=== PATIENT | female | born 1965 | race Caucasian/White ===

== ENCOUNTER 2024-08-13 07:53 | Emergency (ER) | payer OTHER, SELFPAY ==
[2024-08-13] VITALS (12 sets, daily range): BP systolic 140–159; BP diastolic 64–81; PULSE 71–88; RESP 15–23; TEMP 36.8–37.1; O2SAT 94–99; BMI 47.4
--- NOTE | 2024-08-13 07:57 | EKG_ITS ---
[address] [address] Test Date: 2024-08-13 Pat Name: Kate Reece Department: Room: Gender: Female Deployment Technician: KALLI : 1965 Requested By: Order Number: [id number] Reading MD: Santos Hanley MD Measurements Intervals [place] Rate: 71 P: 41 MI: 192 QRS: 9 QRSD: 96 T: 30 QT: 408 QTc: 443 Interpretive Statements Normal sinus rhythm Electronically Signed On 08-13-2024 12:23:31 PST by Santos Hanley MD
--- NOTE | 2024-08-13 08:24 | DI.RAD.S_ITS ---
PROCEDURE: XR CHEST 1V INDICATIONS: chest pain TECHNIQUE: One view of the chest was acquired. COMPARISON: None. FINDINGS: Surgical changes and devices: None. Lungs and pleura: Lungs are clear. No pleural effusions or pneumothorax. Mediastinum: Mediastinal contours appear normal. Heart size is normal. Bones and chest wall: No suspicious bony lesions. Overlying soft tissues appear unremarkable. IMPRESSION: No acute cardiopulmonary abnormality is seen. Dictated by: Reggie Gordon M.D. on 08/13/2024 at 9:28 Approved by: Reggie Gordon M.D. on 08/13/2024 at 9:30
[2024-08-13 08:35] LABS: INR 0.9 (0.9-1.3); Prothrombin Time 10.5 SECONDS (9.4-12.5)
[2024-08-13 08:36] LABS: Add Manual Diff / Slide Review NO; Basophils Absolute Auto 100 /uL (0-100); Basophils Percent Auto 0.4 % (0-2); Eosinophils Absolute Auto 400 /uL (0-450); Eosinophils Percent Auto 2.4 % (2-4); Hematocrit 43.7 % (36-46); Hemoglobin 14.4 g/dL (12.0-16.0); Lymphocytes Absolute Auto 1700 /uL (1100-4500); Lymphocytes Percent Auto 10.3 % (25-40); Mean Corpuscular Volume 90.9 fL (80-100); Monocytes Absolute Auto 900 /uL (0-900); Monocytes Percent Auto 5.6 % (3-14); Neutrophils Absolute Auto 13400 /uL (1500-7000); Neutrophils Percent Auto 81.3 % (50-75); Platelet Count 327 X10^3/uL (150-400); Red Blood Cell Count 4.81 X10^6/uL (4.0-5.2); Red Cell Distribution Width 14.6 % (11.6-14.8); White Blood Cell Count 16.5 X10^3/uL (4.5-11.0)
[2024-08-13 08:37] LABS: PTT Partial Thromboplastin Tim 37 SECONDS (25.1-36.5)
[2024-08-13 08:40] LABS: Alanine Aminotransferase 21 IU/L (<35); Albumin 4.6 g/dL (3.5-5.0); Albumin Globulin Ratio 1.5 (1.0-2.8); Alkaline Phosphatase 103 U/L (38-126); Aspartate Aminotransferase 22 IU/L (14-36); BUN Creatinine Ratio 22.2 (6-22); Bilirubin Total 0.9 mg/dL (0.2-1.3); Blood Urea Nitrogen 14 mg/dL (7-17); Calcium 9.2 mg/dL (8.4-10.2); Carbon Dioxide 24 mmol/L (22-32); Chloride 106 mmol/L (98-107); Creatine Kinase 33 U/L (30-135); Estimated Glomerular Filt Rate > 60 mL/min (>60); Globulin 3.1 g/dL (1.7-4.1); Glucose 117 mg/dL (80-110); HEMOLYSIS < 15 (0-50); Lipase 41 U/L (23-300); Magnesium 2.1 mg/dL (1.6-2.3); Potassium 4.1 mmol/L (3.4-5.1); Sodium 140 mmol/L (137-145); Total Protein 7.7 g/dL (6.3-8.2)
[2024-08-13] MEDS: ASPIRIN 81 MG CHEW TAB 324 MG PO (08:47)
[2024-08-13 08:51] LABS: NT-proBNP (BNP-Adult 18+) 118 pg/mL (<125); Troponin I < 0.012 ng/mL (0.01-0.034)
--- NOTE | 2024-08-13 09:02 | PC.NURSE ---
Pt reports left shoulder pain a few days ago stating she felt like she slept wrong; pt then stated on she started to feel some anxiety and was having chest, back, and neck tightness. She saw her PCP who did an EKG and ordered a echo. Pt states last night she started to have right shoulder blade pain that wrapped around her right breast. Pt reports tenderness to palpation and states certain positions makes her pain feel better. No skin lesions or skin breaks noted.
--- NOTE | 2024-08-13 09:08 | ED.CHESTPAIN ---
HPI - Chest Pain General Chief Complaint: Chest Pain Stated Complaint: Sharp pain in right shoulder , pain is moving Time Seen by Provider: 08/13/24 08:45 Source: patient Mode of arrival: Ambulatory History of Present Illness HPI narrative: Patient is a 59-year-old female who has history of gastric surgery which has failed according to her presenting today with ongoing right shoulder blade pain. She reports that they are in the process of moving she does not really remember lifting anything heavier injuring her right arm. However over last 1 week he has had increasing pain it is definitely worse whenever she moves her arm. She does not necessarily have weakness in her arm sometimes the pain goes all the way across her chest. No significant shortness of breath no nausea or vomiting. She does have a history of cholecystectomy she has no right upper quadrant pain. However last night she did have some mild abdominal pain where her surgery was. He has no known history of coronary artery disease. She reports that she went to her provider this week when she was having some right shoulder blade pain and EKGs was done and she was told it was normal. However she started again having increasing pain last night. It is definitely reproducible with movement and palpation. Related Data Home Medications Medication Instructions Recorded Confirmed albuterol sulfate 90 mcg/actuation inhalation 08/13/24 aerosol inhaler alprazolam 0.5 mg tablet mg 08/13/24 diltiazem HCl 120 mg mg PO DAILY 08/13/24 capsule,extended release 24 hr, controlled (DILT-XR) fluticasone 500 mcg-salmeterol 50 inhalation 08/13/24 mcg/dose blistr powdr for inhalation losartan 08/13/24 montelukast 10 mg tablet mg DAILY 08/13/24 Previous Rx's Medication Instructions Recorded methocarbamol 500 mg tablet 500 mg PO TID #14 tabs 08/13/24 Allergies Allergy/AdvReac Type Severity Reaction Status Date / Time amoxicillin Allergy Verified 08/13/24 08:38 Penicillins Allergy Verified 08/13/24 08:38 aripiprazole [From Abilify] AdvReac Verified 08/13/24 08:38 codeine AdvReac Verified 08/13/24 08:38 Patient History Social History Smoking Status: Former smoker Smoking Status: Former smoker Exam Initial Vital Signs Initial Vital Signs: Vital Signs Pulse Rate 82 0222/25 08:02 Pulse Oximetry 97 08/13/24 08:02 GENERAL: Alert pleasant 59-year-old female and in no acute distress. HEENT: Head atraumatic,EOMI, pupils reactive, face symmetric, moist mucous membranes CARDIOVASCULAR: Regular rate and rhythm without murmurs, rubs or gallops. RESPIRATORY: Breath sounds equal bilaterally, no wheezes rales or rhonchi. ABDOMEN: Soft, nontender. Normoactive bowel sounds all 4 quadrants. No guarding or rebound. EXTREMITIES: Normal range of motion, no clubbing or edema. Neurovascularly intact Right scapula region is tender to touch reproducible to palpation. No exam no vesicles. Full range of motion NEUROLOGICAL: Alert and oriented x4.Normal gait and speech. Cranial nerves II through XII grossly intact. Molding Plasterer strength equal bilaterally SKIN: Warm, dry, no laceration, no petechiae, no rashes or lesions. Course Orders Ordered: ED Orders 08/13/24 07:57 EKG-12 Lead Stat 08/13/24 08:13 Complete Blood Count AUTO DIFF Stat Comprehensive Metabolic Panel Stat Lipase Stat Magnesium Stat NT-proBNP (BNP-Adult 18+) Stat PTT Partial Thromboplastin [place] Stat Prothrombin Time INR Stat Troponin & CK Cardiac Panel Stat 08/13/24 08:24 XR chest 1V Stat EKG-12 Lead Stat 08/13/24 09:26 CT abdomen pelvis w con Stat Discontinued Medications Aspirin (Aspirin 81 Mg Chew Tab) 324 mg PO NOW ONE Stop: 08/13/24 08:25 Last Admin: 08/13/24 08:47 Dose: 324 mg Documented By: DONNA Vital Signs Vital signs: Vital Signs - 8 hr 08/13/24 08:19 08/13/24 08:30 08/13/24 08:30 Temperature 98.7 F Pulse Rate 87 81 Respiratory Rate 16 Blood Pressure 140/77 148/66 H Pulse Oximetry 97 96 Oxygen Delivery Method Room Air 08/13/24 09:00 08/13/24 09:00 08/13/24 09:46 Temperature Pulse Rate 75 88 Respiratory Rate 15 23 Blood Pressure 147/68 H Pulse Oximetry 98 96 Oxygen Delivery Method 08/13/24 10:00 08/13/24 10:01 08/13/24 10:01 Temperature Pulse Rate 71 75 Respiratory Rate 21 Blood Pressure 154/68 H Pulse Oximetry 97 97 Oxygen Delivery Method 08/13/24 10:30 08/13/24 10:30 08/13/24 11:00 Temperature Pulse Rate 77 74 Respiratory Rate 17 21 Blood Pressure 159/71 H Pulse Oximetry 96 94 Oxygen Delivery Method 08/13/24 11:01 08/13/24 11:01 08/13/24 11:39 Temperature 98.3 F Pulse Rate 75 74 Respiratory Rate 18 16 Blood Pressure 143/64 H 156/81 H Pulse Oximetry 97 99 Oxygen Delivery Method Room Air MDM - Chest Pain Lab Data 08/13/24 08:13 08/13/24 08:13 Labs: Lab Results 08/13/24 Range/Units 08:13 WBC 16.5 H (4.5-11.0) X10^3/uL RBC 4.81 (4.0-5.2) X10^6/uL Hgb 14.4 (12.0-16.0) g/dL Hct 43.7 (36-46) % MCV 90.9 (80-100) fL MCH 30.0 (26-34) PG MCHC 33.0 (30-36) % RDW 14.6 (11.6-14.8) % Plt Count 327 (150-400) X10^3/uL Neut % (Auto) 81.3 H (50-75) % Lymph % (Auto) 10.3 L (25-40) % [place] % (Auto) 5.6 (3-14) % Eos % (Auto) 2.4 (2-4) % Baso % (Auto) 0.4 (0-2) % Neut # (Auto) 97166 H (2645-6381) /uL Lymph # (Auto) 1700 (7214-3370) /uL [place] # (Auto) 900 (0-900) /uL Eos # (Auto) 400 (0-450) /uL Baso # (Auto) 100 (0-100) /uL PT 10.5 (9.4-12.5) SECONDS INR 0.9 (0.9-1.3) APTT 37 H (25.1-36.5) SECONDS Sodium 140 (137-145) mmol/L Potassium 4.1 (3.4-5.1) mmol/L Chloride 106 (98-107) mmol/L Carbon Dioxide 24 (22-32) mmol/L BUN 14 (7-17) mg/dL Creatinine 0.63 (0.52-1.04) mg/dL Estimated GFR > 60 (>60) mL/min BUN/Creatinine Ratio 22.2 H (6-22) Glucose 117 H (80-110) mg/dL Calcium 9.2 (8.4-10.2) mg/dL Magnesium 2.1 (1.6-2.3) mg/dL Total Bilirubin 0.9 (0.2-1.3) mg/dL AST 22 (14-36) IU/L ALT 21 (<35) IU/L Alkaline Phosphatase 103 (38-126) U/L Total Creatine Kinase 33 (30-135) U/L Troponin I < 0.012 (0.01-0.034) ng/mL NT-Pro-B Natriuret Pep 118 (<125) pg/mL Total Protein 7.7 (6.3-8.2) g/dL Albumin 4.6 (3.5-5.0) g/dL Globulin 3.1 (1.7-4.1) g/dL Albumin/Globulin Ratio 1.5 (1.0-2.8) Lipase 41 (23-300) U/L Imaging Data CT scan - abdomen/pelvis: Radiologist's Impression: PROCEDURE: CT ABDOMEN PELVIS W CON INDICATIONS: ab pain right shoulder pain TECHNIQUE: After the administration of intravenous contrast, axial sections acquired from the lung bases to the pubic symphysis. Coronal and sagittal reformats were performed. For radiation dose reduction, the following was used: automated exposure control, adjustment of mA and/or kV according to patient size. COMPARISON: [facility], CR, XR CHEST 1V, 08/13/2024, 8:30. FINDINGS: Image quality: This study is limited by body habitus. Lower Chest: There is a subpleural nodule seen within the right lower lobe, measuring up to 14 mm, as on series 5, image 5. A small hiatal hernia is incidentally noted. ABDOMEN: Liver: No solid mass. Gallbladder: Removed. Biliary ducts: No biliary dilation. Pancreas: No ductal dilation. Spleen: Size is within normal limits. Incidental note is made of an accessory splenule along the hilum of the primary spleen. Adrenal Glands: Generalized adrenal gland thickening can be seen, yet without focal adrenal nodules. Kidneys and Ureters: No hydronephrosis. No solid mass. No complex renal cystic lesion which requires follow up. Stomach and Bowel: Lap band surgery can be seen. No dilated loops of small bowel are seen. Mild distal colonic diverticulosis is seen, without findings of active diverticulitis. A normal appendix is noted. Peritoneum: No abnormal intraperitoneal fluid. No free air. Ventral Wall: A mild periumbilical hernia is seen, containing fat. Abdominal Nodes: No retroperitoneal or mesenteric adenopathy by size criteria. Vessels: Aorta and inferior vena cava are normal in size. Atherosclerotic calcification is noted. PELVIS: Pelvic Organs: No adnexal masses are seen on either side. Bladder: No bladder wall thickening, accounting for underdistention. Pelvic Nodes: No enlarged lymph nodes. Miscellaneous: No inguinal hernias are seen. Bones: No aggressive osseous abnormality. This patient has transitional lumbar anatomy. For the purposes of this examination, the level with the last well-developed pair of ribs is considered to be T12. By this numbering scheme, the S1 level is transitional and is partially lumbarized. There is a remote L1 anterior wedge deformity, with 40% loss of height anteriorly. Focal L5-S1 degenerative change is seen. IMPRESSION: 14 mm nodule seen within the subpleural right lower lobe. Differential diagnosis includes neoplasm. Short-term follow-up contrast enhanced chest CT would be recommended. No imaging explanation is found for this patient's presenting symptoms. Additional findings: Small hiatal hernia Lap band Cholecystectomy Generalized adrenal gland thickening Accessory splenule Mild fat containing periumbilical hernia Diverticulosis, without active diverticulitis Remote L1 anterior wedge deformity Focal L5-S1 degenerative change Transitional S1 level, with partial lumbarization Note: Findings and recommendations discussed by telephone with Dr. Jimenez at 10:46 a.m. [place] time on August 13, 2024. Dictated by: Diogenes Ocasio M.D. on 08/13/2024 at 9:40 Chest x-ray: Radiologist's Impression: PROCEDURE: XR CHEST 1V INDICATIONS: chest pain TECHNIQUE: One view of the chest was acquired. COMPARISON: None. FINDINGS: Surgical changes and devices: None. Lungs and pleura: Lungs are clear. No pleural effusions or pneumothorax. Mediastinum: Mediastinal contours appear normal. Heart size is normal. Bones and chest wall: No suspicious bony lesions. Overlying soft tissues appear unremarkable. IMPRESSION: No acute cardiopulmonary abnormality is seen. Dictated by: Reggie Gordon M.D. on 08/13/2024 at 9:28 Approved by: Reggie Gordon M.D. on 08/13/2024 at 9:30 ECG Data Attestation: I personally reviewed and interpreted this ECG as follows: Prior ECG tracings: not available for review Interpretation: Normal sinus rhythm rate 71 NJ interval 192 QRS [address] changes no T-wave inversion MDM Narrative Medical decision making narrative: [facility] CC: Right shoulder blade pain Complicating co-morbidities: Gastric surgery Medical records reviewed: No previous records Differential considered: Musculoskeletal nerve shingles coronary syndrome dissection, tia cva Exam documented above, pertinent findings include: Pain is definitely reproducible with palpation and movement no rash full strength equal bilaterally Lab Test results independently reviewed as above. Pertinent findings: WBC 16.5, mild left shift anemia CMP no electrolyte abnormalities troponin negative, BNP negative Bilirubin liver enzymes within normal limits Independently reviewed EKG as above no acute ischemia Imaging studies independently reviewed: Chest x-ray does not show any acute cardiopulmonary process CTA abdomen pelvis does show a 14 mm pulmonary nodule on the right Treatments: Aspirin Re-evaluations: Patient is feeling better now she was in the ED abdomen is overall soft Discussion: Patient is 59-year-old female presenting today with right shoulder blade pain has been off and on for about 1 week. It is reproducible with movement and palpation. This seems to be musculoskeletal in nature. Does not seem cardiac in nature. She does have a history of gastric bypass surgery abdominal CT does not show any abnormality in the abdomen. She has an incidental finding of a pulmonary nodule unrelated to her pain today. She does have leukocytosis of 16 unclear cause. She was afebrile. She was not having urinary tract symptoms. Patient is not having any sort of weakness with her right arm this is unlikely to be a TIA or CVA. Discharge Plan Departure Patient Disposition: Home Clinical Impression: Acute pain of right shoulder, Incidental pulmonary nodule Instructions: DI for Pulmonary Nodule, DI for Muscle Spasm Activity Restrictions/Additional Instructions: *You have been diagnosed with muscle spasms *What to do: At this time I do think your right shoulder is hurting from pinched nerve and muscle spasm. Increase activity as tolerated movement encouraged no strenuous heavy lifting. If you have resistance bands they may help as well You also are found to have a pulmonary nodule on the right side. This is unrelated to your pain today. You will need follow-up CT and imaging with your primary care provider *Continue to take medications as directed Methocarbamol 500-1000 mg every 8 hours only if needed for muscle spasms--> to [facility] Continue ibuprofen and Tylenol as needed for pain *Follow up with your primary care provider in 2-3 days or call [phone] *Return to ER if you should have increasing chest pain shortness of breath pain weakness numbness tingling or any new, worsening or concerning symptoms Prescriptions: New methocarbamol 500 mg tablet 500 mg PO TID Qty: 14 0RF No Action albuterol sulfate 90 mcg/actuation HFA aerosol inhaler INHALATION Patient Comments: [NO ORIGINAL SIG] montelukast 10 mg tablet DAILY alprazolam 0.5 mg tablet Patient Comments: [NO ORIGINAL SIG] diltiazem HCl [DILT-XR] 120 mg capsule,ext.rel 24h degradable PO DAILY fluticasone propion-salmeterol 500-50 mcg/dose blister with device INHALATION Patient Comments: [NO ORIGINAL SIG] losartan Rx Instructions: 75mg orally; 50 mg tablet Stand Alone Forms: Patient Portal/API/Survey
--- NOTE | 2024-08-13 09:26 | DI.CT.S_ITS ---
PROCEDURE: CT ABDOMEN PELVIS W CON INDICATIONS: ab pain right shoulder pain TECHNIQUE: After the administration of intravenous contrast, axial sections acquired from the lung bases to the pubic symphysis. Coronal and sagittal reformats were performed. For radiation dose reduction, the following was used: automated exposure control, adjustment of mA and/or kV according to patient size. COMPARISON: [facility], CR, XR CHEST 1V, 08/13/2024, 8:30. FINDINGS: Image quality: This study is limited by body habitus. Lower Chest: There is a subpleural nodule seen within the right lower lobe, measuring up to 14 mm, as on series 5, image 5. A small hiatal hernia is incidentally noted. ABDOMEN: Liver: No solid mass. Gallbladder: Removed. Biliary ducts: No biliary dilation. Pancreas: No ductal dilation. Spleen: Size is within normal limits. Incidental note is made of an accessory splenule along the hilum of the primary spleen. Adrenal Glands: Generalized adrenal gland thickening can be seen, yet without focal adrenal nodules. Kidneys and Ureters: No hydronephrosis. No solid mass. No complex renal cystic lesion which requires follow up. Stomach and Bowel: Lap band surgery can be seen. No dilated loops of small bowel are seen. Mild distal colonic diverticulosis is seen, without findings of active diverticulitis. A normal appendix is noted. Peritoneum: No abnormal intraperitoneal fluid. No free air. Ventral Wall: A mild periumbilical hernia is seen, containing fat. Abdominal Nodes: No retroperitoneal or mesenteric adenopathy by size criteria. Vessels: Aorta and inferior vena cava are normal in size. Atherosclerotic calcification is noted. PELVIS: Pelvic Organs: No adnexal masses are seen on either side. Bladder: No bladder wall thickening, accounting for underdistention. Pelvic Nodes: No enlarged lymph nodes. Miscellaneous: No inguinal hernias are seen. Bones: No aggressive osseous abnormality. This patient has transitional lumbar anatomy. For the purposes of this examination, the level with the last well-developed pair of ribs is considered to be T12. By this numbering scheme, the S1 level is transitional and is partially lumbarized. There is a remote L1 anterior wedge deformity, with 40% loss of height anteriorly. Focal L5-S1 degenerative change is seen. IMPRESSION: 14 mm nodule seen within the subpleural right lower lobe. Differential diagnosis includes neoplasm. Short-term follow-up contrast enhanced chest CT would be recommended. No imaging explanation is found for this patient's presenting symptoms. Additional findings: Small hiatal hernia Lap band Cholecystectomy Generalized adrenal gland thickening Accessory splenule Mild fat containing periumbilical hernia Diverticulosis, without active diverticulitis Remote L1 anterior wedge deformity Focal L5-S1 degenerative change Transitional S1 level, with partial lumbarization Note: Findings and recommendations discussed by telephone with Dr. Jimenez at 10:46 a.m. [place] time on August 13, 2024. Dictated by: Diogenes Ocasio M.D. on 08/13/2024 at 9:40 Approved by: Diogenes Ocasio M.D. on 08/13/2024 at 9:48
== END 2024-08-13 11:40 | disposition home or self-care (01) ==
PROVIDERS: Emergency Provider Emergency Medicine
DX: M25.511 Pain in right shoulder (principal); R10.9 Unspecified abdominal pain; R07.9 Chest pain, unspecified; R91.1 Solitary pulmonary nodule
CPT/HCPCS: 71045; 74177; 80053; 82550; 83690; 83735; 83880; 84484; 85025; 85610; 85730; 93005; 93010; 99283; 99284; Q9967

== ENCOUNTER 2024-08-20 17:03 | Emergency (ER) | payer OTHER, SELFPAY ==
[2024-08-20] VITALS (13 sets, daily range): BP systolic 124–171; BP diastolic 55–81; PULSE 85–95; RESP 18; TEMP 37.6–38.1; O2SAT 93–97; BMI 47.0
[2024-08-20] MEDS: IBUPROFEN 400 MG TABLET 800 MG PO (17:26)
--- NOTE | 2024-08-20 17:37 | EKG_ITS ---
[address] [address] Test Date: 2024-08-20 Pat Name: Kate Reece Department: [facility] Room: Gender: Female C Consultant: WESLY : 1965 Requested By: Order Number: [id number] Reading MD: Joselo Ashby Measurements Intervals [place] Rate: 94 P: 14 SC: 174 QRS: 14 QRSD: 78 T: 32 QT: 332 QTc: 415 Interpretive Statements Normal sinus rhythm Electronically Signed On 08-21-2024 18:57:45 PST by Joselo Ashby
[2024-08-20 19:27] LABS: Add Manual Diff / Slide Review NO; Basophils Absolute Auto 0 /uL (0-100); Basophils Percent Auto 0.2 % (0-2); Eosinophils Absolute Auto 300 /uL (0-450); Eosinophils Percent Auto 1.4 % (2-4); Hematocrit 38.4 % (36-46); Hemoglobin 12.6 g/dL (12.0-16.0); Lymphocytes Absolute Auto 1200 /uL (1100-4500); Lymphocytes Percent Auto 5.8 % (25-40); Mean Corpuscular Hemoglobin 29.7 PG (26-34); Mean Corpuscular Volume 90.2 fL (80-100); Monocytes Absolute Auto 1300 /uL (0-900); Monocytes Percent Auto 6.3 % (3-14); Neutrophils Absolute Auto 18000 /uL (1500-7000); Neutrophils Percent Auto 86.3 % (50-75); Platelet Count 402 X10^3/uL (150-400); Red Blood Cell Count 4.25 X10^6/uL (4.0-5.2); Red Cell Distribution Width 14.3 % (11.6-14.8); White Blood Cell Count 20.9 X10^3/uL (4.5-11.0)
[2024-08-20 19:34] LABS: Alanine Aminotransferase 23 IU/L (<35); Albumin 3.8 g/dL (3.5-5.0); Albumin Globulin Ratio 1.2 (1.0-2.8); Alkaline Phosphatase 109 U/L (38-126); Aspartate Aminotransferase 21 IU/L (14-36); BUN Creatinine Ratio 19.7 (6-22); Bilirubin Total 0.8 mg/dL (0.2-1.3); Blood Urea Nitrogen 12 mg/dL (7-17); Calcium 8.8 mg/dL (8.4-10.2); Carbon Dioxide 23 mmol/L (22-32); Chloride 103 mmol/L (98-107); Estimated Glomerular Filt Rate > 60 mL/min (>60); Globulin 3.2 g/dL (1.7-4.1); Glucose 134 mg/dL (80-110); HEMOLYSIS < 15 (0-50); Lipase 36 U/L (23-300); Potassium 4.1 mmol/L (3.4-5.1); Sodium 136 mmol/L (137-145)
--- NOTE | 2024-08-20 19:34 | ED_ITS ---
HPI - General Adult General Chief complaint: Abdominal Pain Stated complaint: fever t-3, rt shoulder px t-7, rt side px Time Seen by Provider: 08/20/24 19:33 Source: patient Mode of arrival: Wheelchair History of Present Illness HPI narrative: 59-year-old female with a history of gastric surgery which has failed according to patient comes into the ED from home for evaluation of multiple complaints. States that she has been having an intermittent fever for the past 3 days also complaining of right-sided abdominal pain. Also complaining of urinary frequency states was seen here week ago for right-sided shoulder pain and was discharged home with muscle relaxers states that this had helped with those symptoms but because of the fevers felt like the pain is back. She states that her pain primarily to her right lower abdomen, states this is different from what brought her in previously where she was complaining of right shoulder pain to right upper abdominal pain. Denies any nausea vomiting headache chest pain shortness of breath or any other GI/ symptoms at this time. Related Data Home Medications Medication Instructions Recorded Confirmed albuterol sulfate 90 mcg/actuation inhalation 08/13/24 aerosol inhaler alprazolam 0.5 mg tablet mg 08/13/24 diltiazem HCl 120 mg mg PO DAILY 08/13/24 capsule,extended release 24 hr, controlled (DILT-XR) fluticasone 500 mcg-salmeterol 50 inhalation 08/13/24 mcg/dose blistr powdr for inhalation losartan 08/13/24 montelukast 10 mg tablet mg DAILY 08/13/24 Previous Rx's Medication Instructions Recorded methocarbamol 500 mg tablet 500 mg PO TID #14 tabs 08/13/24 doxycycline hyclate 100 mg capsule 100 mg PO BID 5 days #10 caps 08/20/24 Allergies Allergy/AdvReac Type Severity Reaction Status Date / Time amoxicillin Allergy Verified 08/13/24 08:38 Penicillins Allergy Verified 08/13/24 08:38 aripiprazole [From Abilify] AdvReac Verified 08/13/24 08:38 codeine AdvReac Verified 08/13/24 08:38 Review of Systems Review of Systems Narrative: General: Denies fever, chills, weight loss HEENT: Denies headache, eye drainage, eye irritation, head trauma, sore throat, voice change Cardiovascular: Denies any chest pain, palpitations, shortness of breath, tachycardia Respiratory: Denies any shortness of breath, cough, wheeze, stridor GI/: Positive abdominal pain, denies nausea, vomiting, diarrhea, bright red blood per rectum, melanotic stools, urinary frequency, urinary retention, dysuria, hematuria MSK: Denies any joint pain, muscle pains, swelling Skin: Denies any rashes, lesions, discoloration Neuro: Denies any headache, lightheadedness, dizziness, fainting, weakness Psych: Denies SI/HI Patient History Social History Smoking Status: Former smoker Smoking Status: Former smoker Exam Narrative Exam Narrative: General: Cooperative, comfortable, well-developed, not in acute distress HEENT: Normocephalic, atraumatic, PERRLA, normal sclera, eyelids normal, Neck: Active full range of motion, atraumatic Chest: Normal to inspection, negative crepitus, no overlying erythema ecchymosis Respiratory: Normal respiratory effort, not in acute respiratory distress, clear to auscultation bilaterally negative cough, wheeze, tachypnea, rhonchi, rales Cardiology: Regular rate rhythm negative gallop, murmur, rubs GI/: Normal to inspection, soft, nonrigid, no tenderness to palpation, exam deferred MSK: Full range of active range of motion of all 4 extremities, atraumatic Skin: No rashes lesions noted Neuro: Alert awake oriented x3, moves all 4 extremities spontaneously, cranial nerves intact, able to answer all questions appropriately follows commands appropriately Psych: Cooperative, negative suicidal or homicidal ideations Initial Vital Signs Initial Vital Signs: Vital Signs Temperature 100.5 F H 08/20/24 17:11 Pulse Rate 89 08/20/24 17:11 Respiratory Rate 18 08/20/24 17:11 Blood Pressure 154/71 H 08/20/24 17:11 Pulse Oximetry 95 08/20/24 17:11 Oxygen Delivery Method Room Air 08/20/24 17:11 Course Orders Ordered: ED Orders 08/20/24 17:16 EKG-12 Lead Stat 08/20/24 19:15 Complete Blood Count AUTO DIFF Stat Comprehensive Metabolic Panel Stat Lipase Stat 08/20/24 19:35 CT abdomen pelvis w con Stat 08/20/24 19:53 Covid-19 + FLU A/B + RSV - PCR Stat Sodium Chloride (Normal Saline 0.9%) 1,000 mls @ 1,000 mls/hr IV BOLUS ONE Stop: 08/20/24 20:50 Last Admin: 08/20/24 20:19 Dose: 1,000 mls/hr Documented By: AYAAN Ondansetron HCl (Ondansetron 4 Mg/2 Ml Inj) 4 mg IV NOW PRN PRN Reason: Nausea And Vomiting Last Admin: 08/20/24 20:18 Dose: 4 mg Documented By: AYAAN Ondansetron HCl (Ondansetron 4 Mg Odt) 4 mg PO NOW PRN PRN Reason: Nausea And Vomiting Discontinued Medications Acetaminophen (Acetaminophen 325 Mg Tablet) 650 mg PO NOW ONE Stop: 08/20/24 19:52 Last Admin: 08/20/24 20:18 Dose: 650 mg Documented By: AYAAN Famotidine (Famotidine 20 Mg/2 Ml Vial) 20 mg IV NOW ONE Stop: 08/20/24 19:52 Last Admin: 08/20/24 20:18 Dose: 20 mg Documented By: AYAAN Ibuprofen (Ibuprofen 400 Mg Tablet) 800 mg PO NOW ONE Stop: 08/20/24 17:17 Last Admin: 08/20/24 17:26 Dose: 800 mg Documented By: CJ Vital Signs Vital signs: Vital Signs - 8 hr 08/20/24 17:11 08/20/24 17:26 08/20/24 17:41 Temperature 100.5 F H 100.5 F H Pulse Rate 89 95 H Respiratory Rate 18 Blood Pressure 154/71 H Pulse Oximetry 95 93 Oxygen Delivery Method Room Air 08/20/24 17:42 08/20/24 17:42 08/20/24 18:00 Temperature Pulse Rate 94 H 89 Respiratory Rate Blood Pressure 171/78 H Pulse Oximetry 94 94 Oxygen Delivery Method 08/20/24 18:01 08/20/24 18:01 08/20/24 18:30 Temperature Pulse Rate 90 89 Respiratory Rate Blood Pressure 136/55 L Pulse Oximetry 94 97 Oxygen Delivery Method 08/20/24 18:30 08/20/24 19:00 08/20/24 19:00 Temperature 99.7 F H Pulse Rate 85 Respiratory Rate Blood Pressure 141/65 H 140/65 Pulse Oximetry 96 Oxygen Delivery Method Room Air 08/20/24 19:30 08/20/24 19:30 08/20/24 20:00 Temperature Pulse Rate 85 87 Respiratory Rate 18 Blood Pressure 124/81 Pulse Oximetry 93 93 Oxygen Delivery Method Medical Decision Making Differential Diagnosis Differential Diagnosis: Pneumonia, pancreatitis, diverticulitis, electrolyte abnormality Lab Data 08/20/24 19:15 08/20/24 19:15 Labs: Lab Results 08/20/24 08/20/24 Range/Units 19:15 19:53 WBC 20.9 H (4.5-11.0) X10^3/uL RBC 4.25 (4.0-5.2) X10^6/uL Hgb 12.6 (12.0-16.0) g/dL Hct 38.4 (36-46) % MCV 90.2 (80-100) fL MCH 29.7 (26-34) PG MCHC 33.0 (30-36) % RDW 14.3 (11.6-14.8) % Plt Count 402 H (150-400) X10^3/uL Neut % (Auto) 86.3 H (50-75) % Lymph % (Auto) 5.8 L (25-40) % Hale % (Auto) 6.3 (3-14) % Eos % (Auto) 1.4 L (2-4) % Baso % (Auto) 0.2 (0-2) % Neut # (Auto) 15069 H (9327-8975) /uL Lymph # (Auto) 1200 (1620-9730) /uL Hale # (Auto) 1300 H (0-900) /uL Eos # (Auto) 300 (0-450) /uL Baso # (Auto) 0 (0-100) /uL Sodium 136 L (137-145) mmol/L Potassium 4.1 (3.4-5.1) mmol/L Chloride 103 (98-107) mmol/L Carbon Dioxide 23 (22-32) mmol/L BUN 12 (7-17) mg/dL Creatinine 0.61 (0.52-1.04) mg/dL Estimated GFR > 60 (>60) mL/min BUN/Creatinine Ratio 19.7 (6-22) Glucose 134 H (80-110) mg/dL Calcium 8.8 (8.4-10.2) mg/dL Total Bilirubin 0.8 (0.2-1.3) mg/dL AST 21 (14-36) IU/L ALT 23 (<35) IU/L Alkaline Phosphatase 109 (38-126) U/L Total Protein 7.0 (6.3-8.2) g/dL Albumin 3.8 (3.5-5.0) g/dL Globulin 3.2 (1.7-4.1) g/dL Albumin/Globulin Ratio 1.2 (1.0-2.8) Lipase 36 (23-300) U/L SARS-CoV-2 (PCR) Negative (Negative) Influenza A (RT-PCR) Flu a negative (NEGATIVE) Influenza B (RT-PCR) Flu b negative (NEGATIVE) RSV (PCR) Negative (Negative) Urine Dip Bedside Urine Glucose Negative Bedside Urine Bilirubin - Negative Bedside Urine Ketone - Negative Urine Specific [place]houn 1.010 Bedside Urine Occult Blood - Negative Bedside Urine pH 8 Bedside Urine Protein - Negative Bedside Urine Urobilinogen - Negative Bedside Urine Nitrite - Negative Bedside Urine Leukocytes - Negative Esterase Point of care testing: Urine Dip Bedside Urine Glucose Negative Bedside Urine Bilirubin - Negative Bedside Urine Ketone - Negative Urine Specific Calhoun 1.010 Bedside Urine Occult Blood - Negative Bedside Urine pH 8 Bedside Urine Protein - Negative Bedside Urine Urobilinogen - Negative Bedside Urine Nitrite - Negative Bedside Urine Leukocytes - Negative Esterase Imaging Data CT scan - abdomen/pelvis: Radiologist's Impression: [place] [address] CT Scan Report Signed Patient: Kate Reece MR#: [id number] : 1965 Acct:[id number] Age/Sex: 59 / F Date of Service: 08/20/24 Loc: ED Accession Number: [id number] Procedure: CT abdomen pelvis w con Ordering Provider: Joselo Jacobsen D.O. PROCEDURE: CT ABDOMEN PELVIS W CON INDICATIONS: right sided abd pain TECHNIQUE: After the administration of intravenous contrast, axial sections acquired from the lung bases to the pubic symphysis. Coronal and sagittal reformats were performed. For radiation dose reduction, the following was used: automated exposure control, adjustment of mA and/or kV according to patient size. COMPARISON: [facility], CT, CT ABDOMEN PELVIS W CON, 08/13/2024, 9:31. FINDINGS: Image quality: Diagnostic. Lower Chest: At the right lung base, there is a partially loculated pleural effusion, with overlying pulmonary consolidation. This is clearly worse than on the CT dated 08/13/2024. The left lung base appears clear. ABDOMEN: Liver: No solid mass. Gallbladder: Cholecystectomy. Biliary ducts: No biliary dilation. Pancreas: No ductal dilation. Spleen: Size is within normal limits. Incidental note is made of an accessory splenule along the hilum of the primary spleen. Adrenal Glands: Generalized adrenal gland thickening is seen, without adrenal nodules. Kidneys and Ureters: No hydronephrosis. No solid mass. No complex renal cystic lesion which requires follow up. Stomach and Bowel: A lap band can be seen. No dilated loops of small bowel are seen. No significant colonic abnormality is seen. Minimal distal colonic diverticulosis is seen, without findings of active diverticulitis. Peritoneum: No abnormal intraperitoneal fluid. No free air. Ventral Wall: No significant ventral hernia. Abdominal Nodes: No retroperitoneal or mesenteric adenopathy by size criteria. Vessels: Aorta and inferior vena cava are normal in size. Atherosclerotic calcification is noted. PELVIS: Pelvic Organs: Small uterine fibroids are seen. No adnexal masses are seen on either side. Bladder: No bladder wall thickening, accounting for underdistention. Pelvic Nodes: No enlarged lymph nodes. Miscellaneous: No inguinal hernias are seen. Bones: No aggressive osseous abnormality. There is a remote L1 anterior wedge deformity. Focal L5-S1 degenerative change is seen. Transitional lumbar anatomy is seen, with partial lumbarization of S1. IMPRESSION: Interval development of a partially loculated right-sided pleural effusion, with overlying consolidation. Infection is suspected. Additional findings: Lap band Accessory splenule Cholecystectomy Generalized adrenal gland thickening, without focal nodules Diverticulosis, without active diverticulitis Remote, stable L1 anterior wedge deformity Focal L5-S1 degenerative change Transitional S1, with partial lumbarization ECG Data Interpretation: EKG interpreted ED physician sinus 94 beats per minute QTC [address] changes no STEMI MDM Narrative Medical decision making narrative: 59-year-old female past medical history of cholecystectomy, failed gastric lap banding comes into the ED for persistent right-sided abdominal pain, she states that she was seen here previously for similar symptoms but stated it was more upper now it is now to her right lower quadrant. States that she has also been having intermittent fevers high of 100 F. states that she has been able to control these with Tylenol Motrin but given persistent symptoms wanted to be evaluated here in the emergency department. Patient lab work that did show a leukocytosis of 20,000, otherwise lab work unremarkable urinalysis not consistent with urinary tract infection. CT abdomen and pelvis was performed showed right-sided consolidation concerning for pneumonia, patient not requiring any supplemental oxygen, well-appearing nontoxic, she was offered admission to the hospital she states that she would rather try to go home and do the antibiotics instead. She was given strict return precautions she verbalized understanding of this and agrees to being discharged home with outpatient follow up Discharge Plan Departure Patient Disposition: Home Clinical Impression: Pneumonia Instructions: DI for Pneumonia -- Adult Activity Restrictions/Additional Instructions: Please follow up your primary care doctor Please return to the emergency department if your symptoms worsen Please read the discharge instructions sheet carefully and bring all papers to all doctor follow-up visits, as it may contain information that your doctor may want to see. Disease processes change and evolve, if your symptoms worsen or if you develop any new symptoms that are concerning to you please return for evaluation. Your evaluation today does not show any evidence of any life- threatening/serious illnesses requiring admission to the hospital or surgery. Please follow-up with your doctor for re-evaluation in approximately 1 day. Seek immediate medical attention for any worrisome symptoms. *If you do not have a primary care provider please contact the [facility] Resource line at [phone]. They will ask some questions about your medical history and help get you set up with a doctor in the community. Prescriptions: New doxycycline hyclate 100 mg capsule 100 mg PO BID 5 Days Qty: 10 0RF No Action albuterol sulfate 90 mcg/actuation HFA aerosol inhaler INHALATION Patient Comments: [NO ORIGINAL SIG] montelukast 10 mg tablet DAILY alprazolam 0.5 mg tablet Patient Comments: [NO ORIGINAL SIG] diltiazem HCl [DILT-XR] 120 mg capsule,ext.rel 24h degradable PO DAILY fluticasone propion-salmeterol 500-50 mcg/dose blister with device INHALATION Patient Comments: [NO ORIGINAL SIG] losartan Rx Instructions: 75mg orally; 50 mg tablet methocarbamol 500 mg tablet 500 mg PO TID Qty: 14 0RF Referrals: Willa Maloney ARNP [Primary Care Provider] - Stand Alone Forms: Patient Portal/API/Survey
[2024-08-20] MEDS: FAMOTIDINE 20 MG/2 ML VIAL IV (20:18)
[2024-08-20] MEDS: ONDANSETRON 4 MG/2 ML INJ IV (20:18)
[2024-08-20] MEDS: ACETAMINOPHEN 325 MG TABLET 650 MG PO (20:18)
[2024-08-20] MEDS: SODIUM CHLORIDE 0.9% 1,000 ML 1000 ML IV (20:19)
[2024-08-20 20:34] LABS: Influenza A - CEPHEID Flu A NEGATIVE (NEGATIVE); Influenza B - CEPHEID Flu B NEGATIVE (NEGATIVE); Respiratory Syncytial Virus Negative (Negative)
[2024-08-20 20:36] LABS: COVID-19 CEPHEID 4-PLEX PCR Negative (Negative)
[2024-08-20] MEDS: DOXYCYCLINE HYCLATE 100 MG TABLET PO (21:17)
== END 2024-08-20 21:45 | disposition home or self-care (01) ==
PROVIDERS: Emergency Medicine; Emergency Provider Student in an Organized Health Care Education/Training Program; PCP Nurse Practitioner Family
DX: J18.9 Pneumonia, unspecified organism (principal); R10.31 Right lower quadrant pain; R35.0 Frequency of micturition; M25.511 Pain in right shoulder; Z87.891 Personal history of nicotine dependence
CPT/HCPCS: 0241U; 74177; 80053; 81003; 83690; 85025; 93005; 96361; 96374; 96375; 99284; J2405; Q9967